=== PATIENT | male | born 1950 | race Two or more races ===

== ENCOUNTER → 2025-02-14 | Day surgery (SDC) | payer MEDICARE, MEDICAID ==
[2025-02-12 10:09] LABS: Hematocrit 41.0 % (41.0-53.0); Hemoglobin 14.4 g/dL (13.5-17.5); Mean Corpuscular Hemoglobin 31.5 pg (28.0-32.0); Mean Corpuscular Volume 89.5 fL (80.0-100.0); Nucleated Red Blood Cells % 0.0 %
[2025-02-12 10:47] LABS: INR 0.98 (0.9-1.15); Partial Thromboplastin Time 28.6 SEC (24.5-34.5); Prothrombin Time 10.4 sec (9.3-11.8)
[2025-02-12 11:30] LABS: Albumin 4.7 g/dL (3.2-4.8); Alkaline Phosphatase 109 U/L (46-116); Anion Gap 6 (5-15); BUN/Creatinine Ratio 10.7 (10.0-20.0); Bilirubin, Total 0.5 mg/dL (0.2-1.0); Blood Urea Nitrogen 9 mg/dL (9-23); Calcium 9.1 mg/dL (8.7-10.4); Carbon Dioxide 29 mmol/L (20-31); Chloride 103 mmol/L (98-107); Potassium 4.6 mmol/L (3.5-5.1); Sodium 138 mmol/L (136-145); Total Protein 7.7 g/dL (5.7-8.2)
[2025-02-12 11:35] LABS: Alanine Aminotransferase < 9 U/L (7-40)
[2025-02-12 12:12] LABS: Glucose 97 mg/dL (74-106)
[2025-02-12 15:49] LABS: Urine Protein, UAD Negative (Negative)
[~2025-02-14] VITALS: Ht 180.3 cm; Wt 68.0 kg
[~2025-02-14] MED LIST: MIDAZOLAM HCL 2MG/2ML 2ml VIAL (1mg/ml) ONE; PROPOFOL 10 MG/ML 20 ML IV ONE; fentaNYL CITRATE 100 MCG/2 ML VL ONE
[2025-02-14 13:40] VITALS: PULSE 68; RESP 15; TEMP 97.8; O2SAT 98
[2025-02-14 14:10] VITALS: BP 141/89; PULSE 69; RESP 20; O2SAT 95
--- NOTE | 2025-02-14 14:57 | DVHOP2 ---
Operative Report DATE OF OPERATION: 02/14/25 PROCEDURE: Colonoscopy with hot snare polypectomy. PREOPERATIVE INDICATION: The patient is a 74 -year-old male undergoing colonoscopy for colon cancer screening with abnormal finding GI tract descending colon on PET scan POSTOPERATIVE DIAGNOSES: 1. 2.5 cm descending colon polyp on a stalk was seen and removed completely via hot snare polypectomy from 40 cm above the anal verge 2. [id number]-[id number] sigmoid diverticular disease 3. 1+ internal hemorrhoids otherwise essentially completely normal colonoscopy examination up to the cecum and terminal ileum PROCEDURE PERFORMED BY: Kuldeep Rios M.D. SCOPE: Olympus videocolonoscope. ASA CLASS: 3 PREOPERATIVE MEDICATIONS: Mac sedation, Dr. Montiel PROCEDURE IN DETAIL: After obtaining an informed consent, the patient was placed on left lateral decubitus position. He was then sedated with the above medications. A rectal examination was performed that was normal. The colonoscope was then passed through the anus into the rectosigmoid and through the descending, transverse, and ascending colon up to the cecum with visualization of the appendiceal orifice, base of the cecum and the ileocecal valve. The colonoscope was then withdrawn. Distal 5-10 cm of the terminal ileum were normal No masses or colitis was noted. Patient had mild sigmoid diverticular disease In the distal descending colon at about 40 cm above the anal verge there was a 2.5 cm polyp on a long stalk that was seen and removed by hot snare polypectomy and the specimens were retrieved Retroflexion he had trace to 1+ internal hemorrhoids The patient tolerated the procedure well without difficulty. WITHDRAWAL TIME: 9 minutes QUALITY OF THE PREP: [place] Bowel Prep score: 9. COMPLICATIONS : None SPECIMENS: Descending colon polyp DISPOSITION: Stable D/C to home PLAN: 1. Repeat colonoscopy base on biopsy result likely in three years 2. Resume GI soft diet advance as tolerated 3. Increase fluid and fiber intake 4. Outpatient follow up with me in 2-4 weeks to review results and discuss further management KULDEEP RIOS MD Feb 14, 2025 14:57
== END | disposition home or self-care (01) ==
LOC: GI 11:09
PROVIDERS: ATTEND Internal Medicine Gastroenterology
DX: R93.3 Abnormal findings on diagnostic imaging of other parts of digestive tract (principal); D12.4 Benign neoplasm of descending colon; K63.5 Polyp of colon; K57.30 Diverticulosis of large intestine without perforation or abscess without bleeding; K64.8 Other hemorrhoids; I10 Essential (primary) hypertension; G40.909 Epilepsy, unspecified, not intractable, without status epilepticus; F17.210 Nicotine dependence, cigarettes, uncomplicated; Z79.899 Other long term (current) drug therapy; Z85.118 Personal history of other malignant neoplasm of bronchus and lung; Z85.89 Personal history of malignant neoplasm of other organs and systems; Z98.890 Other specified postprocedural states
CPT/HCPCS: 36415; 45385; 80053; 81001; 85025; 85610; 85730; 88305; J1100; J2250; J2704; J3010; J7030